=== PATIENT | female | born 1985 | race Caucasian/White ===

== ENCOUNTER 2021-11-29 16:31 | Emergency (ER) | payer OTHER ==
[2021-11-29] MEDS ORDERED: Morphine 4 MG/ML VIAL ONE (17:32)
[2021-11-29] MEDS ORDERED: Ondansetron PF 4 MG/2 ML Vial ONE (17:32)
[2021-11-29 17:43] LABS: #Monocytes 0.5 10x3/uL (0.0-1.1); #Neutrophils 7.3 10x3/uL (1.5-8.4); %Basophils 0.4 % (0.0-2.0); %Eosinophils 0.1 % (0.0-6.0); %Lymphocytes 2.6 % (18.0-47.0); %Monocytes 5.7 % (0.0-10.0); %Neutrophils 90.2 % (40.0-75.0); Hemoglobin 12.3 g/dL (12.0-15.5); Mean Corpuscular HGB CONC 34.3 g/dL (32.0-36.0); Mean Corpuscular Volume 87.6 fl (81.6-98.3); Mean Platelet Volume 9.8 fl (7.4-10.4); Platelet Count 200 10x3/uL (150-450); RBC Distribution Width 13.4 % (11.5-14.5); White Blood Cell (WBC) Count 8.1 10x3/uL (3.5-10.5)
[2021-11-29 18:03] LABS: Bilirubin Neg (Negative); Blood, Urine 10 (Negative); Clarity Clear (Clear); Glucose, Urine (Dipstick) Normal (Negative); Ketone, Urine 15 mg/dL (Negative); Leukocyte Negative (Negative); Nitrite Negative (Negative); Protein, Urine (Dipstick) Negative (Neg-Trace); Specific Gravity, Urine 1.015 (1.002-1.036); Urobilinogen Normal mg/dL (Less than 2); pH, Urine 6.5 (5.0-9.0)
[2021-11-29 18:05] LABS: ALT (SGPT) 48 U/L (8-55); AST (SGOT) 44 U/L (5-34); Albumin 3.8 g/dL (3.5-5.0); Alkaline Phosphatase 49 U/L (40-110); Anion Gap 15 mmol/L (10-20); BUN (Urea Nitrogen) 7 mg/dL (7.0-18.7); Bilirubin, Total 0.4 mg/dL (0.2-1.2); Calc. Creatinine Clearance 0 mL/min (70-130); Calcium 9.1 mg/dL (7.8-10.44); Carbon Dioxide 21 mmol/L (22-29); Chloride 102 mmol/L (98-107); Glucose 92 mg/dL (70-105); Potassium 3.5 mmol/L (3.5-5.1); Protein, Total 6.8 g/dL (6.0-8.3); Sodium 134 mmol/L (136-145)
[2021-11-29 18:17] LABS: Bacteria/HPF 1+ HPF (None Seen); RBC/HPF 0-3 HPF (0-3); Squamous Epithelial 0-3 HPF (0-3); WBC/HPF 0-3 HPF (0-3)
[2021-11-29 18:41] LABS: SARS-CoV-2 NAA Rapid Test DETECTED (NotDetected)
[2021-11-29] MEDS ORDERED: Morphine 2 MG/ML VIAL ONE (19:28)
== END 2021-11-29 19:49 | disposition home or self-care (01) ==
LOC: CSHERS 16:31
DX: O98.511 Other viral diseases complicating pregnancy, first trimester (principal); U07.1 COVID-19; Z3A.13 13 weeks gestation of pregnancy
CPT/HCPCS: 36415; 76770; 80053; 81003; 81015; 85025; 87086; 96374; 96375; 96376; J2270; J2405

== ENCOUNTER 2022-02-12 08:04 | Observation (INO) | payer OTHER, SELFPAY ==
[2022-02-12] MEDS ORDERED: Ondansetron PF 4 MG/2 ML Vial ONE ×2 (08:17→17:10)
[2022-02-12] MEDS ORDERED: Morphine 4 MG/ML VIAL ONE ×2 (08:17→08:47)
[2022-02-12 08:30] LABS: #Eosinphils 0.1 10x3/uL (0.0-0.5); #Monocytes 0.5 10x3/uL (0.0-1.1); #Neutrophils 7.4 10x3/uL (1.5-8.4); %Basophils 0.4 % (0.0-2.0); %Eosinophils 0.8 % (0.0-6.0); %Monocytes 4.5 % (0.0-10.0); %Neutrophils 69.4 % (40.0-75.0); Hemoglobin 13.3 g/dL (12.0-15.5); Mean Corpuscular HGB CONC 33.8 g/dL (32.0-36.0); Mean Corpuscular Hemoglobin 30.5 pg (27.0-33.0); Mean Corpuscular Volume 90.1 fl (81.6-98.3); Mean Platelet Volume 10.4 fl (7.4-10.4); Platelet Count 256 10x3/uL (150-450); RBC Distribution Width 12.5 % (11.5-14.5); Red Blood Cell (RBC) Count 4.36 10x6/uL (3.90-5.03); White Blood Cell (WBC) Count 10.6 10x3/uL (3.5-10.5)
[2022-02-12 08:51] LABS: ALT (SGPT) 20 U/L (8-55); AST (SGOT) 19 U/L (5-34); Albumin 3.7 g/dL (3.5-5.0); Alkaline Phosphatase 71 U/L (40-110); Anion Gap 15 mmol/L (10-20); BUN (Urea Nitrogen) 9 mg/dL (7.0-18.7); Bilirubin, Total 0.4 mg/dL (0.2-1.2); Calc. Creatinine Clearance 0 mL/min (70-130); Carbon Dioxide 21 mmol/L (22-29); Chloride 106 mmol/L (98-107); Estimated GFR 105; Globulin 3.5 g/dL (2.4-3.5); Glucose 126 mg/dL (70-105); Potassium 3.8 mmol/L (3.5-5.1); Protein, Total 7.2 g/dL (6.0-8.3); Sodium 138 mmol/L (136-145)
[2022-02-12 09:54] LABS: Bilirubin Neg (Negative); Blood, Urine 250 (Negative); Clarity Cloudy (Clear); Glucose, Urine (Dipstick) Normal (Negative); Ketone, Urine 50 mg/dL (Negative); Leukocyte 25 (Negative); Nitrite Negative (Negative); Protein, Urine (Dipstick) 30 mg/dl (Neg-Trace); Specific Gravity, Urine 1.015 (1.002-1.036); Urobilinogen Normal mg/dL (Less than 2)
[2022-02-12 10:01] LABS: RBC/HPF Greater than 50 HPF (0-3)
[2022-02-12 10:04] LABS: Bacteria/HPF 3+ HPF (None Seen); Mucous/LPF 1+ LPF (<2+)
[2022-02-12] MEDS ORDERED: cefTRIAXone\\ROCEPHIN 2 GM VIAL ONE (10:15)
[2022-02-12] MEDS ORDERED: Morphine 2 MG/ML VIAL ONE (10:48)
[2022-02-12 13:01] VITALS: BMI 30.6
[2022-02-12] MEDS ORDERED: Meperidine HCl/PF 25 MG/ML VIAL SLOW IVP SCH (13:30)
[2022-02-12] MEDS ORDERED: Promethazine HCl 25 MG/ML VIAL IM SCH (13:30)
[2022-02-12] MEDS ORDERED: Meperidine HCl/PF 25 MG/ML VIAL ONE (13:31)
[2022-02-12] MEDS: Lactated Ringer's 1,000 ML IV SCH ×2 (13:37→20:40)
[2022-02-12] MEDS: HYDROcodone/Acetaminophen 5/325 mg Tablet PO PRN ×2 (16:51→21:46)
[2022-02-12] MEDS ORDERED: Ondansetron PF 4 MG/2 ML Vial IVP PRN (17:05)
[2022-02-12] MEDS ORDERED: Calcium Carbonate 500 MG ChewTAB PO PRN (22:20)
[2022-02-12] MEDS ORDERED: Fluticasone Propionate Nasal Spray 16 gm Bottle NASAL SCH (22:30)
[2022-02-12] MEDS ORDERED: Aspirin 81 mg Enteric Coated Tablet PO SCH (22:30)
[2022-02-12] MEDS ORDERED: Montelukast Sodium 10 mg Tablet PO SCH (23:15)
[2022-02-12] MEDS ORDERED: Docusate 100 MG CAP PO SCH (23:15)
[2022-02-12] MEDS: Calcium Carbonate 500 MG ChewTAB PO PRN (23:20)
[2022-02-13] MEDS: Lactated Ringer's 1,000 ML IV SCH ×6 (00:11→19:17)
[2022-02-13] MEDS: Docusate 100 MG CAP PO SCH ×2 (08:11→21:58)
[2022-02-13] MEDS: HYDROcodone/Acetaminophen 5/325 mg Tablet PO PRN ×3 (08:11→21:57)
[2022-02-13] MEDS: Aspirin 81 mg Enteric Coated Tablet PO SCH ×2 (08:13→21:59)
[2022-02-13] MEDS: Fioricet 325/50/40 mg Tablet PO PRN ×2 (12:56→17:26)
[2022-02-13] MEDS: Calcium Carbonate 500 MG ChewTAB PO PRN ×2 (15:31→21:56)
[2022-02-13] MEDS ORDERED: Fluticasone Propionate Nasal Spray 16 gm Bottle NASAL SCH (21:00)
[2022-02-13] MEDS ORDERED: Nitrofurantoin Monohyd/M-Cryst 100 MG CAP PO SCH (21:00)
[2022-02-13] MEDS ORDERED: Montelukast Sodium 10 mg Tablet PO SCH (21:00)
[2022-02-14 08:00] VITALS: BP 116/65; TEMP 98.3
== END 2022-02-14 10:00 | disposition home health service (06) ==
LOC: CSHERS 08:04 → INTOOBSV 12:59 → CSHLD 12:59 → CSHANTE 18:40
PROVIDERS: ADMIT Obstetrics & Gynecology; ATTEND Obstetrics & Gynecology
DX: O99.891 Other specified diseases and conditions complicating pregnancy (principal); N13.2 Hydronephrosis with renal and ureteral calculous obstruction; R51.9 Headache, unspecified; Z3A.24 24 weeks gestation of pregnancy; Z87.442 Personal history of urinary calculi; Z79.899 Other long term (current) drug therapy
CPT/HCPCS: 76770; 80053; 81003; 81015; 85025; 87086; 96361; 96365; 96372; 96375; 96376; 99285; G0378; J0696; J2175; J2270; J2405; J2550; J7120

== ENCOUNTER 2022-05-25 19:00 | Inpatient (IN) | payer OTHER, SELFPAY ==
[2022-05-25] MEDS ORDERED: hydrALAZINE 20 MG/ML VIAL SLOW IVP PRN (20:08)
[2022-05-25] MEDS ORDERED: HYDROcodone/Acetaminophen 5/325 mg Tablet PO PRN ×2 (20:08)
[2022-05-25] MEDS ORDERED: Misoprostol 200 MCG TAB PR PRN (20:08)
[2022-05-25] MEDS ORDERED: Promethazine HCl 25 MG/ML VIAL IM PRN (20:08)
[2022-05-25] MEDS ORDERED: Zolpidem Tartrate 5 MG TAB PO PRN (20:08)
[2022-05-25] MEDS ORDERED: Acetaminophen 500 MG TAB PO PRN (20:08)
[2022-05-25] MEDS ORDERED: Ibuprofen 800 MG TAB PO PRN (20:08)
[2022-05-25] MEDS ORDERED: Lidocaine 1% (PF) 30 ML VIAL SC PRN (20:08)
[2022-05-25] MEDS ORDERED: Diphenoxylate HCl/Atropine Tablet PO PRN ×2 (20:08)
[2022-05-25] MEDS ORDERED: Docusate 100 MG CAP PO PRN (20:08)
[2022-05-25] MEDS ORDERED: Butorphanol Tartrate 1 MG/ML VIAL SLOW IVP PRN (20:08)
[2022-05-25] MEDS ORDERED: NS w/ Oxytocin 30 units 500 ML IV SCH ×2 (20:30)
[2022-05-25 20:44] VITALS: BMI 35.5
[2022-05-25] MEDS: Misoprostol 100 MCG TAB VAG SCH (21:14)
[2022-05-25 21:17] LABS: Hemoglobin 10.3 g/dL (12.0-15.5); Mean Corpuscular HGB CONC 35.2 g/dL (32.0-36.0); Mean Corpuscular Hemoglobin 31.1 pg (27.0-33.0); Mean Corpuscular Volume 88.5 fl (81.6-98.3); Mean Platelet Volume 10.4 fl (7.4-10.4); Platelet Count 245 10x3/uL (150-450); RBC Distribution Width 13.2 % (11.5-14.5); Red Blood Cell (RBC) Count 3.31 10x6/uL (3.90-5.03)
[2022-05-25 21:53] LABS: SARS-CoV-2 NAA Rapid Test Not Detected (NotDetected)
[2022-05-25 22:27] LABS: Syphilis Antibody Nonreactive (Nonreactive); Syphilis Antibody Index 0.03 S/CO (<1.00 Non-Reactive)
[2022-05-25 22:30] LABS: HBSAg Index 0.17 S/CO (0-0.99); HIV (1/2) Antibody/Antigen Non-Reactive (NonReactive); HIV 1/2 INDEX 0.12 S/CO (<1.00); Hep B Surf Ag Non-Reactive S/CO (NonReactive)
[2022-05-26] MEDS ORDERED: Fentanyl 2 mcg/Bup 0.1% Cadd 100 ML ONE ×2 (03:55→12:42)
[2022-05-26] MEDS ORDERED: Bupivacaine 0.25% HCL 30 ML VIAL ONE (08:00)
[2022-05-26] MEDS: Lactated Ringer's 1,000 ML IV SCH ×4 (08:12→22:11)
[2022-05-26] MEDS: Ondansetron PF 4 MG/2 ML Vial IVP PRN ×3 (09:00→20:22)
[2022-05-26] MEDS ORDERED: Ondansetron PF 4 MG/2 ML Vial IVP PRN (14:04)
[2022-05-26] MEDS ORDERED: Lactated Ringer's 500 ML IV PRN (14:04)
[2022-05-26] MEDS ORDERED: ePHEDrine Sulfate 50 MG/10 ML VIAL SLOW IVP PRN (14:04)
[2022-05-26] MEDS ORDERED: Acetaminophen 325 MG TAB PO PRN (14:04)
[2022-05-26] MEDS ORDERED: diphenhydrAMINE 50 MG/ML VIAL IVP PRN (14:04)
[2022-05-26] MEDS ORDERED: Naloxone HCl 0.4 mg/ml Vial IVP PRN ×2 (14:04)
[2022-05-26] MEDS ORDERED: Moisturizing Cream (Eucerin) 113 GM JAR TOP PRN (14:04)
[2022-05-26] MEDS ORDERED: Promethazine HCl 25 MG/ML VIAL IM PRN (14:04)
[2022-05-26] MEDS ORDERED: Communication Order-Pharmacy FS SCH (14:15)
[2022-05-26] MEDS ORDERED: Fentanyl 2 mcg/Bupivacaine 0.1% Cassette 100 ML EPIDURAL SCH (14:15)
[2022-05-26] MEDS ORDERED: Bisacodyl 10 MG SUPP PR PRN (18:42)
[2022-05-26] MEDS ORDERED: Misoprostol 200 MCG TAB VAG PRN (18:42)
[2022-05-26] MEDS ORDERED: Milk Of Magnesia 30 ML UDCUP PO PRN (18:42)
[2022-05-26] MEDS ORDERED: Lanolin Ointment 7 GM TUBE TOP PRN (18:42)
[2022-05-26] MEDS ORDERED: hydrALAZINE 20 MG/ML VIAL SLOW IVP PRN (18:42)
[2022-05-26] MEDS ORDERED: Benzocaine-Menthol 82.5 ML CAN TOP PRN (18:42)
[2022-05-26] MEDS ORDERED: Boostrix 0.5 ML (Tdap) VIAL (>/=7 yrs of age) IM ONE (18:42)
[2022-05-26] MEDS ORDERED: diphenhydrAMINE 25 MG CAP PO PRN (18:42)
[2022-05-26] MEDS ORDERED: Preparation H Ointment 28 GM TUBE PR PRN (18:42)
[2022-05-26] MEDS ORDERED: Witch Hazel-Glycerin 1 EACH JAR TOP PRN (18:44)
[2022-05-26] MEDS ORDERED: NS w/ Oxytocin 30 units 500 ML IV SCH (18:45)
[2022-05-26] MEDS: Misoprostol 100 MCG TAB VAG SCH ×2 (20:12→22:11)
[2022-05-26] MEDS: Ibuprofen 800 MG TAB PO SCH (21:31)
[2022-05-26] MEDS: Docusate 100 MG CAP PO SCH (22:10)
[2022-05-26] MEDS ORDERED: HYDROcodone/Acetaminophen 5/325 mg Tablet PO PRN ×2 (22:45)
[2022-05-27] MEDS: Ibuprofen 800 MG TAB PO SCH ×3 (05:22→22:26)
[2022-05-27 06:43] LABS: Hemoglobin 9.7 g/dL (12.0-15.5); Mean Corpuscular HGB CONC 34.9 g/dL (32.0-36.0); Mean Corpuscular Volume 88.8 fl (81.6-98.3); Platelet Count 223 10x3/uL (150-450); RBC Distribution Width 13.2 % (11.5-14.5); Red Blood Cell (RBC) Count 3.13 10x6/uL (3.90-5.03); White Blood Cell (WBC) Count 13.5 10x3/uL (3.5-10.5)
[2022-05-27] MEDS: Ondansetron PF 4 MG/2 ML Vial IVP PRN (08:02)
[2022-05-27] MEDS: Ferrous Sulfate 325 MG TAB PO SCH ×2 (08:07→17:58)
[2022-05-27] MEDS: Docusate 100 MG CAP PO SCH ×2 (08:08→22:26)
[2022-05-27] MEDS ORDERED: Acetaminophen/Codeine 30-300mg Tablet PO PRN (09:11)
[2022-05-27] MEDS ORDERED: Acetaminophen 325 MG TAB PO PRN (09:11)
[2022-05-27] MEDS: Acetaminophen/Codeine 30-300mg Tablet PO PRN ×2 (11:21→17:59)
[2022-05-28] MEDS: Ibuprofen 800 MG TAB PO SCH ×2 (05:30→13:21)
[2022-05-28] MEDS: Docusate 100 MG CAP PO SCH (09:02)
[2022-05-28] MEDS: Ferrous Sulfate 325 MG TAB PO SCH (09:02)
[2022-05-28 11:29] VITALS: BP 130/80; TEMP 98.9
[2022-05-28] MEDS: Acetaminophen/Codeine 30-300mg Tablet PO PRN (13:25)
== END 2022-05-28 13:50 | disposition home or self-care (01) | DRG 807 ==
LOC: CSHLD 19:27 → CSHPP 05-26 21:45
PROVIDERS: ADMIT Obstetrics & Gynecology; ATTEND Obstetrics & Gynecology
PROC: 10E0XZZ Delivery of Products of Conception, External Approach (ICD-10-PCS; principal; 2022-05-26)
PROC: 3E0DXGC Introduction of Other Therapeutic Substance into Mouth and Pharynx, External Approach (ICD-10-PCS; 2022-05-26)
PROC: 3E033VJ Introduction of Other Hormone into Peripheral Vein, Percutaneous Approach (ICD-10-PCS; 2022-05-26)
PROC: 3E0334Z Introduction of Serum, Toxoid and Vaccine into Peripheral Vein, Percutaneous Approach (ICD-10-PCS; 2022-05-27)
DX: O24.429 Gestational diabetes mellitus in childbirth, unspecified control (principal); Z37.0 Single live birth; Z3A.39 39 weeks gestation of pregnancy; Z86.16 Personal history of COVID-19; F90.9 Attention-deficit hyperactivity disorder, unspecified type; E06.3 Autoimmune thyroiditis; O99.344 Other mental disorders complicating childbirth; Z91.040 Latex allergy status
CPT/HCPCS: 36415; 36416; 51702; 85027; 85461; 86780; 86850; 86900; 86901; 87340; 87389; 90384; 96372; J2405; J2590; J7120; S0020; U0002

== ENCOUNTER 2023-07-20 09:07 | Inpatient (IN) | payer OTHER, SELFPAY ==
[~2023-07-20 09:07] MED LIST: Bupivacaine 0.25% HCL 30 ML VIAL ONE; ePHEDrine Sulfate 50 MG/10 ML VIAL ONE
[2023-07-20] MEDS ORDERED: Acetaminophen 500 MG TAB PO PRN (09:14)
[2023-07-20] MEDS ORDERED: hydrALAZINE 20 MG/ML VIAL SLOW IVP PRN (09:14)
[2023-07-20] MEDS ORDERED: Docusate 100 MG CAP PO PRN (09:14)
[2023-07-20] MEDS ORDERED: Promethazine HCl 25 MG/ML VIAL IM PRN ×2 (09:14→17:25)
[2023-07-20] MEDS ORDERED: Carboprost 250 MCG/ML AMP IM PRN (09:14)
[2023-07-20] MEDS ORDERED: Lidocaine 1% (PF) 30 ML VIAL SC PRN (09:14)
[2023-07-20] MEDS ORDERED: Ibuprofen 800 MG TAB PO PRN (09:14)
[2023-07-20] MEDS ORDERED: fentaNYL 50 mcg/mL 1 mL Vial SLOW IVP PRN (09:14)
[2023-07-20] MEDS ORDERED: HYDROcodone/Acetaminophen 5/325 mg Tablet PO PRN ×2 (09:14)
[2023-07-20] MEDS ORDERED: Diphenoxylate HCl/Atropine Tablet PO PRN ×2 (09:14)
[2023-07-20] MEDS ORDERED: Methylergonovine 0.2 MG/ML VIAL IM PRN (09:14)
[2023-07-20] MEDS ORDERED: Misoprostol 200 MCG TAB PR PRN (09:14)
[2023-07-20] MEDS ORDERED: Oxytocin 30 units/NS 500 ML 500 ML IV SCH ×3 (09:15)
[2023-07-20 10:04] VITALS: BMI 35.5
[2023-07-20 10:11] LABS: Hematocrit 29.8 % (34.9-44.5); Hemoglobin 10.1 g/dL (12.0-15.5); Mean Corpuscular HGB CONC 33.9 g/dL (32.0-36.0); Mean Corpuscular Volume 91.4 fl (81.6-98.3); Mean Platelet Volume 10.5 fl (7.4-10.4); Platelet Count 209 10x3/uL (150-450); RBC Distribution Width 14.6 % (11.5-14.5); Red Blood Cell (RBC) Count 3.26 10x6/uL (3.90-5.03); White Blood Cell (WBC) Count 13.4 10x3/uL (3.5-10.5)
[2023-07-20 10:41] LABS: HIV (1/2) Antibody/Antigen Non-Reactive (NonReactive); HIV 1/2 INDEX 0.11 S/CO (<1.00)
[2023-07-20 10:43] LABS: Syphilis Antibody Nonreactive (Nonreactive); Syphilis Antibody Index 0.04 S/CO (<1.00 Non-Reactive)
[2023-07-20 10:44] LABS: HBSAg Index 0.17 S/CO (0-0.99); Hep B Surf Ag - L&D Non-Reactive S/CO (NonReactive)
[2023-07-20] MEDS: Lactated Ringer's 1,000 ML IV SCH ×2 (10:53→16:34)
[2023-07-20] MEDS: Misoprostol 100 MCG TAB VAG SCH ×2 (10:53→15:52)
[2023-07-20] MEDS ORDERED: fentaNYL/Ropivacaine Epidural 100 ML ONE (16:00)
[2023-07-20] MEDS ORDERED: ePHEDrine Sulfate 50 MG/10 ML VIAL SLOW IVP PRN (17:25)
[2023-07-20] MEDS ORDERED: Lactated Ringer's 500 ML IV PRN (17:25)
[2023-07-20] MEDS ORDERED: Moisturizing Cream (Eucerin) 113 GM JAR TOP PRN (17:25)
[2023-07-20] MEDS ORDERED: diphenhydrAMINE 50 MG/ML VIAL IVP PRN (17:25)
[2023-07-20] MEDS ORDERED: Ondansetron PF 4 MG/2 ML Vial IVP PRN (17:25)
[2023-07-20] MEDS ORDERED: Acetaminophen 325 MG TAB PO PRN (17:25)
[2023-07-20] MEDS ORDERED: Naloxone HCl 0.4 mg/ml Vial IVP PRN ×2 (17:25)
[2023-07-20] MEDS ORDERED: fentaNYL 2 mcg/Ropivacaine 0.2% Epidural 100 ML CADD EPIDURAL SCH (17:30)
[2023-07-20] MEDS ORDERED: Communication Order-Pharmacy FS SCH (17:30)
[2023-07-20] MEDS: Ondansetron PF 4 MG/2 ML Vial IVP PRN (20:15)
[2023-07-21] MEDS: Lactated Ringer's 1,000 ML IV SCH ×2 (04:14→16:56)
[2023-07-21] MEDS: Ondansetron PF 4 MG/2 ML Vial IVP PRN ×2 (06:05→11:46)
[2023-07-21] MEDS ORDERED: Dexmedetomidine 200 MCG/2 ML VIAL ONE (10:06)
[2023-07-21] MEDS ORDERED: Preparation H Ointment 28 GM TUBE PR PRN (14:01)
[2023-07-21] MEDS ORDERED: Lanolin Ointment 7 GM TUBE TOP PRN (14:01)
[2023-07-21] MEDS ORDERED: Ondansetron PF 4 MG/2 ML Vial IVP PRN (14:01)
[2023-07-21] MEDS ORDERED: diphenhydrAMINE 25 MG CAP PO PRN (14:01)
[2023-07-21] MEDS ORDERED: Misoprostol 200 MCG TAB VAG PRN (14:01)
[2023-07-21] MEDS ORDERED: Milk Of Magnesia 30 ML UDCUP PO PRN (14:01)
[2023-07-21] MEDS ORDERED: Bisacodyl 10 MG SUPP PR PRN (14:01)
[2023-07-21] MEDS ORDERED: hydrALAZINE 20 MG/ML VIAL SLOW IVP PRN (14:01)
[2023-07-21] MEDS ORDERED: Benzocaine-Menthol 82.5 ML CAN TOP PRN (14:01)
[2023-07-21] MEDS ORDERED: Boostrix 0.5 ML (Tdap) VIAL (>/=7 yrs of age) IM ONE (14:01)
[2023-07-21] MEDS ORDERED: Oxytocin 30 units/NS 500 ML 500 ML IV SCH (14:15)
[2023-07-21] MEDS: Misoprostol 100 MCG TAB VAG SCH ×3 (15:48→16:56)
[2023-07-21] MEDS: Ibuprofen 800 MG TAB PO SCH (15:53)
[2023-07-21] MEDS ORDERED: Zolpidem Tartrate 5 MG TAB PO PRN (17:30)
[2023-07-21] MEDS ORDERED: HYDROcodone/Acetaminophen 5/325 mg Tablet PO PRN (17:30)
[2023-07-21] MEDS: Ferrous Sulfate 325 MG TAB PO SCH (18:35)
[2023-07-21] MEDS: Docusate 100 MG CAP PO SCH (22:03)
[2023-07-21] MEDS: HYDROcodone/Acetaminophen 5/325 mg Tablet PO PRN (22:04)
[2023-07-22] MEDS: Ibuprofen 800 MG TAB PO SCH ×4 (01:55→17:13)
[2023-07-22 04:28] LABS: Hematocrit 28.2 % (34.9-44.5); Hemoglobin 9.4 g/dL (12.0-15.5); Mean Corpuscular HGB CONC 33.3 g/dL (32.0-36.0); Mean Corpuscular Hemoglobin 30.7 pg (27.0-33.0); Mean Corpuscular Volume 92.2 fl (81.6-98.3); Mean Platelet Volume 10.3 fl (7.4-10.4); Platelet Count 212 10x3/uL (150-450); RBC Distribution Width 14.6 % (11.5-14.5); Red Blood Cell (RBC) Count 3.06 10x6/uL (3.90-5.03); White Blood Cell (WBC) Count 15.1 10x3/uL (3.5-10.5)
[2023-07-22] MEDS: Ferrous Sulfate 325 MG TAB PO SCH ×2 (08:39→17:20)
[2023-07-22] MEDS: Docusate 100 MG CAP PO SCH (08:39)
[2023-07-22] MEDS ORDERED: Prenatal Vitamin 1 TAB PO SCH (09:00)
[2023-07-22] MEDS: HYDROcodone/Acetaminophen 5/325 mg Tablet PO PRN (10:40)
[2023-07-22 11:35] VITALS: BP 112/73; TEMP 98.1
== END 2023-07-22 18:00 | disposition home or self-care (01) | DRG 806 ==
LOC: CSHLD 09:07 → EEVIPCON 09:07 → CSHPP 07-21 16:03
PROVIDERS: ADMIT Obstetrics & Gynecology; ATTEND Obstetrics & Gynecology
PROC: 10E0XZZ Delivery of Products of Conception, External Approach (ICD-10-PCS; principal; 2023-07-21)
PROC: 10907ZC Drainage of Amniotic Fluid, Therapeutic from Products of Conception, Via Natural or Artificial Opening (ICD-10-PCS; 2023-07-21)
PROC: 10H07YZ Insertion of Other Device into Products of Conception, Via Natural or Artificial Opening (ICD-10-PCS; 2023-07-21)
PROC: 3E0P7VZ Introduction of Hormone into Female Reproductive, Via Natural or Artificial Opening (ICD-10-PCS; 2023-07-21)
PROC: 3E033XZ Introduction of Vasopressor into Peripheral Vein, Percutaneous Approach (ICD-10-PCS; 2023-07-21)
PROC: 3E0334Z Introduction of Serum, Toxoid and Vaccine into Peripheral Vein, Percutaneous Approach (ICD-10-PCS; 2023-07-22)
DX: O99.02 Anemia complicating childbirth (principal); O41.03X0 Oligohydramnios, third trimester, not applicable or unspecified; Z37.0 Single live birth; Z3A.38 38 weeks gestation of pregnancy; O99.824 Streptococcus B carrier state complicating childbirth; O09.523 Supervision of elderly multigravida, third trimester
CPT/HCPCS: 36415; 51702; 85027; 85461; 86780; 86850; 86870; 86900; 86901; 87340; 87389; 90384; 96372; J1200; J2405; J2550; J2590; J7120